=== PATIENT | female | born 1985 | race Caucasian/White ===

== ENCOUNTER 2016-05-16 12:44 | Emergency (ER) | payer OTHER ==
[2016-05-16 14:05] LABS: HEMOGLOBIN 11.7 gm/dl (12.3-15.3); RED BLOOD COUNT 5.03 M/UL (4.00-5.10)
[2016-05-16 14:23] LABS: BUN/CREATININE RATIO 11 (0-10)
== END 2016-05-16 17:13 | disposition home or self-care (01) ==
LOC: ER1 12:44
PROVIDERS: Nurse Practitioner Family
DX: N83.201 Unspecified ovarian cyst, right side (principal); N20.0 Calculus of kidney; D64.9 Anemia, unspecified
CPT/HCPCS: 36415; 80053; 81001; 82150; 83690; 84703; 85025; 87086; 96361; 96374; 99284; J2405; J7050; Q9962

== ENCOUNTER → 2016-05-19 | Outpatient (CLI) | payer OTHER | LOC: US 05-18 16:30 | DX: N83.201 Unspecified ovarian cyst, right side (principal); R93.8 Abnormal findings on diagnostic imaging of other specified body structures | CPT/HCPCS: 76830 ==